=== PATIENT | female | born 1975 | race Caucasian/White ===

== ENCOUNTER 2024-03-21 11:34 | Observation (INO) | payer BC ==
--- NOTE | 2024-03-21 13:59 | ED ---
Headache HPI - General Source: patient, family Mode of arrival: wheelchair Limitations: no limitations - History of Present Illness MD Complaint: headache Onset/Timin Severity scale (1-10): 7 <Erick Barber - Last Filed: 03/21/24 13:54> - General Source: patient, family, RN notes reviewed, old records reviewed, Caregiver Mode of arrival: wheelchair Limitations: no limitations - History of Present Illness -: week(s) Onset Description: gradual Location: right, left, frontal, occipital Severity: severe Severity scale (1-10): 10 Quality: aching, throbbing Consistency: constant Improves With: nothing Worsens With: none Associated Symptoms: photophobia, sensitivity to sound Treatments Prior to Arrival: Acetaminophen, Ibuprofen <Leland Yen - Last Filed: 03/25/24 17:48> - General Chief Complaint: Headache Stated Complaint: Headache Time Seen by Provider: 03/21/24 11:50 - History of Present Illness Initial Comments: Quick note: This is a 49-year-old female presenting with headache (/10) x 7 days. Patient states pain is mostly in the occipital region of her head with associated light/sound sensitivity and nausea. Patient states symptoms started when she saw a white light and getting lightheaded while driving. Patient states she seen at [facility] in [place] where she was admitted with the same symptoms from 03/14/2024 to 03/17/2024. States she had a CT and MRI of her brain where they suspect that she may have pseudotumor cerebri. Patient states she had a "weird EKG" at the time with follow-up with setup technician next month. Patient has known history of bradycardia. Endorses use of Advil/Tylenol, Medrol Dosepak and Topamax, the last 2 received following discharge, with minimal relie f. Denies fever, chills, neck stiffness, chest pain, dyspnea, abdominal pain, vomiting. (Erick Barber) This is a 49-year-old female complex recent medical history including multiple hospital admissions. Patient has intractable headache despite outpatient treatment and presents to the ER for diagnosis and relief of symptoms (Leland Yen) - Related Data Home Medications Medication Instructions Recorded Confirmed Levothyroxine Sodium [Synthroid] 100 mcg PO DAILY 03/21/24 03/21/24 Rimegepant Sulfate [Nurtec Odt] 75 mg PO DAILY PRN 03/21/24 03/21/24 methylPREDNISolone Dose Pack See Taper PO DIRECTED 03/21/24 03/21/24 [Medrol Dose Pack] Previous Rx's Medication Instructions Recorded Acetaminophen Tab [Tylenol] 650 mg PO Q6HR PRN tab 03/25/24 Butalb/APAP/Caff 50-325-40Mg 1 each PO DAILY PRN #30 tab 03/25/24 [Fioricet 50-325-40] SUMAtriptan succinate [Imitrex] 50 mg PO DAILY PRN #20 tab 03/25/24 Topiramate [Topamax] 100 mg PO BID #60 tab 03/25/24 Allergies Allergy/AdvReac Type Severity Reaction Status Date / Time No Known Allergies Allergy Verified 03/21/24 16:43 Review of Systems ROS Other: All systems not noted in ROS Statement are negative. <Erick Barber - Last Filed: 03/21/24 13:54> ROS Other: All systems not noted in ROS Statement are negative. <Leland Yen - Last Filed: 03/25/24 17:48> ROS Statement: Those systems with pertinent positive or pertinent negative responses have been documented in the HPI. Past Medical History Past Medical History: No Reported History History of Any Multi-Drug Resistant Organisms: None Reported Past Surgical History: No Surgical Hx Reported Past Psychological History: No Psychological Hx Reported Smoking Status: Never smoker Past Alcohol Use History: None Reported Past Drug Use History: None Reported <Erick Barber - Last Filed: 03/21/24 13:54> General Exam <Erick Barber - Last Filed: 03/21/24 13:54> General appearance: alert, in no apparent distress Head exam: Present: atraumatic, normocephalic, normal inspection Eye exam: Present: normal appearance, PERRL, EOMI. Absent: scleral icterus, conjunctival injection, periorbital swelling ENT exam: Present: normal exam, mucous membranes moist Neck exam: Present: normal inspection. Absent: tenderness, meningismus, lymphadenopathy Respiratory exam: Present: normal lung sounds bilaterally. Absent: respiratory distress, wheezes, rales, rhonchi, stridor Cardiovascular Exam: Present: regular rate, normal rhythm, normal heart sounds. Absent: systolic murmur, diastolic murmur, rubs, gallop, clicks GI/Abdominal exam: Present: soft, normal bowel sounds. Absent: distended, tenderness, guarding, rebound, rigid Extremities exam: Present: normal inspection, full ROM, normal capillary refill. Absent: tenderness, pedal edema, joint swelling, calf tenderness Back exam: Present: normal inspection Neurological exam: Present: alert, oriented X3, CN II-XII intact Psychiatric exam: Present: normal affect, normal mood Skin exam: Present: warm, dry, intact, normal color. Absent: rash <Leland Yen - Last Filed: 03/25/24 17:48> - General Exam Comments Initial Comments: Visual Physical Exam Vital signs reviewed General: Well-appearing, nontoxic. Patient seated in wheelchair holding head and appears mildly distressed. Head: Normocephalic, atraumatic Eyes: PERRLA, EOMI ENT: Airway patent Chest: Nonlabored breathing Skin: No visual rash, normal skin tone Neuro: Alert and oriented 3 Musculoskeletal: No gross abnormalities (Erick Barber) Course <Leland Yen - Last Filed: 03/25/24 17:48> Vital Signs 03/21/24 03/21/24 03/22/24 12:07 21:51 01:00 Temperature 97.8 F 98.5 F Pulse Rate 49 L 45 L 48 L Respiratory 18 16 17 Rate Blood Pressure 132/84 131/85 131/73 O2 Sat by Pulse 98 100 98 Oximetry 03/22/24 03/22/24 03/22/24 06:00 07:31 12:04 Temperature 98.1 F Pulse Rate 46 L 53 L 50 L Respiratory 16 18 16 Rate Blood Pressure 139/76 119/70 146/81 O2 Sat by Pulse 95 95 97 Oximetry - Reevaluation(s) Reevaluation #1: 03/21/24 16:44 Medical records reviewed (Leland Yen) Reevaluation #2: 03/21/24 16:44 Patient symptoms unimproved, headache difficult to control (Leland Yen) Reevaluation #3: 03/21/24 16:44 Patient informed of results questions answered (Leland Yen) Reevaluation #4: Was pt. sent in by a medical professional or institution (, BASHIR, COMMERCIAL LEASE ADMINISTRATOR, urgent ca re, hospital, or senior living...) When possible be specific @ -no Did you speak to anyone other than the patient for history (EMS, parent, family, police, friend...)? What history was obtained from this source @ -no Did you review nursing and triage notes (agree or disagree)? Why? @ -agree Are old charts reviewed (outside hosp., previous admission, EMS record, old EKG, old radiological studies, urgent care reports/EKG's, senior living records)? Report findings @ -yes Differential Diagnosis (chest pain, altered mental status, abdominal pain women, abdominal pain men, vaginal bleeding, weakness, fever, dyspnea, syncope, headache, dizziness, GI bleed, back pain, seizure, CVA, palpatations, mental health, musculoskeletal)? @ -prior EKG interpreted by me (3pts min.). @ -yes X-rays interpreted by me (1pt min.). @ -Yes negative for acute disease to CT interpreted by me (1pt min.). @ -no U/S interpreted by me (1pt. min.). @ -no What testing was considered but not performed or refused? (CT, X-rays, U/S, labs)? Why? @ -none What meds were considered but not given or refused? Why? @ -none Did you discuss the management of the patient with other professionals (professionals i.e. BASHIR Nelson, COMMERCIAL LEASE ADMINISTRATOR, lab, RT, psych nurse, social work manager, restrike hammer operator, teacher, special service officer, wrapper caser)? Give summary @ -no Was smoking cessation discussed for >3mins.? @ -no Was critical care preformed (if so, how long)? @ -no Were there social determinants of health that impacted care today? How? (Ho melessness, low income, unemployed, alcoholism, drug addiction, transportation, low edu. Level, literacy, decrease access to med. care, senior care, rehab)? @ -none Was there de-escalation of care discussed even if they declined (Discuss DNR or withdrawal of care, Hospice)? DNR status @ -no What co-morbidities impacted this encounter? (DM, HTN, Smoking, COPD, CAD, Cancer, CVA, ARF, Chemo, Hep., AIDS, mental health diagnosis, sleep apnea, morbid obesity)? @ -none Was patient admitted / discharged? Hospital course, mention meds given and route, prescriptions, significant lab abnormalities, going to OR and other pertinent info. @ - 49 female will admit for intractable headache severe headache on the outpatient basis impacting activities of daily living. Patient on multiple different medications without improvement in symptoms, will admit for neurology evaluation concern for pseudotumor cerebri and increased intracranial pressure Admitted Undiagnosed new problem with uncertain prognosis? @ -no Drug Therapy requiring intensive monitoring for toxicity (Heparin, Nitro, Insulin, Cardizem)? @ -no Were any procedures done? @ -no Diagnosis/symptom? @ -Intractable headache Acute, or Chronic, or Acute on Chronic? @ -Acute Uncomplicated (without systemic symptoms) or Complicated (systemic symptoms)? @ -Complicated Side effects of treatment? @ -no Exacerbation, Progression, or Severe Exacerbation? @ -exacerbation Poses a threat to life or bodily function? How? (Chest pain, [place], [place], pneumonia, PE, COPD, DKA, ARF, appy, cholecystitis, CVA, Diverticulitis, Homicidal, Suicidal, threat to staff... and all critical care pts) @ -yes severe headache (Leland Yen) Reevaluation #5: Differential Headache: Migraine, tension, cluster, carbon monoxide, central venous thrombosis, pension karma temporal arteritis, acute closure glaucoma, intercranial hemorrhage, mastoiditis, sinusitis, head injury, this is not meant to be an all-inclusive li st. (Leland Yen) - Consultations Consultation #1: Spoke with [facility] who agrees to admit this patient (Leland Yen) Medical Decision Making <Erick Barber - Last Filed: 03/21/24 13:54> - Lab Data Result diagrams: 03/21/24 15:24 03/21/24 15:24 - EKG Data -: EKG Interpreted by Me (EKG sinus bradycardia 48 [place] 158 QRS 102 QTc 402) - Radiology Data Radiology results: report reviewed (Chest x-ray is negative for acute disease), image reviewed <Leland Yen - Last Filed: 03/25/24 17:48> - Medical Decision Making I completed the quick note portion of this chart signed SHAHBAZ Alexander (Erick Barber) 49 female will admit for intractable headache severe headache on the outpatient basis impacting activities of daily living. Patient on multiple different medications without improvement in symptoms, will admit for neurology evaluation concern for pseudotumor cerebri and increased intracranial pressure (Leland Yen) - Lab Data Lab Results 03/21/24 03/21/24 03/21/24 Range/Units 15:24 15:24 15:24 WBC 11.6 H (3.8-10.6) k/uL RBC 5.43 H (3.80-5.40) m/uL Hgb 15.5 (11.4-16.0) gm/dL Hct 47.8 H (34.0-46.0) % MCV 88.1 (80.0-100.0) fL MCH 28.5 (25.0-35.0) pg MCHC 32.4 (31.0-37.0) g/dL RDW 14.6 (11.5-15.5) % Plt Count 334 (150-450) k/uL MPV 7.2 Neutrophils % 74 % Lymphocytes % 20 % Monocytes % 4 % Eosinophils % 0 % Basophils % 0 % Neutrophils # 8.6 H (1.3-7.7) k/uL Lymphocytes # 2.4 (1.0-4.8) k/uL Monocytes # 0.5 (0-1.0) k/uL Eosinophils # 0.0 (0-0.7) k/uL Basophils # 0.0 (0-0.2) k/uL PT (10.0-12.5) sec INR (<1.2) APTT (22.0-30.0) sec Sodium 140 (137-145) mmol/L Potassium 4.3 (3.5-5.1) mmol/L Chloride 103 (98-107) mmol/L Carbon Dioxide 24 (22-30) mmol/L Anion Gap 13 mmol/L BUN 17 (7-17) mg/dL Creatinine 0.81 (0.52-1.04) mg/dL Est GFR (CKD-EPI)AfAm >90 (>60 ml/min/1.73 sqM) Est GFR (CKD-EPI)NonAf 87 (>60 ml/min/1.73 sqM) Glucose 115 H (74-99) mg/dL Plasma Lactic Acid Sebas (0.7-2.0) mmol/L Calcium 9.7 (8.4-10.2) mg/dL Magnesium 2.3 (1.6-2.3) mg/dL Total Bilirubin 0.8 (0.2-1.3) mg/dL AST 24 (14-36) U/L ALT 20 (4-34) U/L Alkaline Phosphatase 71 (38-126) U/L Troponin I (0.000-0.034) ng/mL C-Reactive Protein <0.5 (<1.0) mg/dL Total Protein 8.9 H (6.3-8.2) g/dL Albumin 5.4 H (3.5-5.0) g/dL Urine Color Urine Appearance (Clear) Urine pH (5.0-8.0) Ur Specific [place] (1.001-1.035) Urine Protein (Negative) Urine Glucose (UA) (Negative) Urine Ketones (Negative) Urine Blood (Negative) Urine Nitrite (Negative) Urine Bilirubin (Negative) Urine Urobilinogen (<2.0) mg/dL Ur Leukocyte Esterase (Negative) Urine HCG, Qual Not Detected (Not Detectd) 03/21/24 03/21/24 03/21/24 Range/Units 15:24 15:24 15:24 WBC (3.8-10.6) k/uL RBC (3.80-5.40) m/uL Hgb (11.4-16.0) gm/dL Hct (34.0-46.0) % MCV (80.0-100.0) fL MCH (25.0-35.0) pg MCHC (31.0-37.0) g/dL RDW (11.5-15.5) % Plt Count (150-450) k/uL MPV Neutrophils % % Lymphocytes % % Monocytes % % Eosinophils % % Basophils % % Neutrophils # (1.3-7.7) k/uL Lymphocytes # (1.0-4.8) k/uL Monocytes # (0-1.0) k/uL Eosinophils # (0-0.7) k/uL Basophils # (0-0.2) k/uL PT 11.7 (10.0-12.5) sec INR 1.1 (<1.2) APTT 26.3 (22.0-30.0) sec Sodium (137-145) mmol/L Potassium (3.5-5.1) mmol/L Chloride (98-107) mmol/L Carbon Dioxide (22-30) mmol/L Anion Gap mmol/L BUN (7-17) mg/dL Creatinine (0.52-1.04) mg/dL Est GFR (CKD-EPI)AfAm (>60 ml/min/1.73 sqM) Est GFR (CKD-EPI)NonAf (>60 ml/min/1.73 sqM) Glucose (74-99) mg/dL Plasma Lactic Acid Sebas 1.0 (0.7-2.0) mmol/L Calcium (8.4-10.2) mg/dL Magnesium (1.6-2.3) mg/dL Total Bilirubin (0.2-1.3) mg/dL AST (14-36) U/L ALT (4-34) U/L Alkaline Phosphatase (38-126) U/L Troponin I <0.012 (0.000-0.034) ng/mL C-Reactive Protein (<1.0) mg/dL Total Protein (6.3-8.2) g/dL Albumin (3.5-5.0) g/dL Urine Color Urine Appearance (Clear) Urine pH (5.0-8.0) Ur Specific [place] (1.001-1.035) Urine Protein (Negative) Urine Glucose (UA) (Negative) Urine Ketones (Negative) Urine Blood (Negative) Urine Nitrite (Negative) Urine Bilirubin (Negative) Urine Urobilinogen (<2.0) mg/dL Ur Leukocyte Esterase (Negative) Urine HCG, Qual (Not Detectd) 03/21/24 Range/Units 15:55 WBC (3.8-10.6) k/uL RBC (3.80-5.40) m/uL Hgb (11.4-16.0) gm/dL Hct (34.0-46.0) % MCV (80.0-100.0) fL MCH (25.0-35.0) pg MCHC (31.0-37.0) g/dL RDW (11.5-15.5) % Plt Count (150-450) k/uL MPV Neutrophils % % Lymphocytes % % Monocytes % % Eosinophils % % Basophils % % Neutrophils # (1.3-7.7) k/uL Lymphocytes # (1.0-4.8) k/uL Monocytes # (0-1.0) k/uL Eosinophils # (0-0.7) k/uL Basophils # (0-0.2) k/uL PT (10.0-12.5) sec INR (<1.2) APTT (22.0-30.0) sec Sodium (137-145) mmol/L Potassium (3.5-5.1) mmol/L Chloride (98-107) mmol/L Carbon Dioxide (22-30) mmol/L Anion Gap mmol/L BUN (7-17) mg/dL Creatinine (0.52-1.04) mg/dL Est GFR (CKD-EPI)AfAm (>60 ml/min/1.73 sqM) Est GFR (CKD-EPI)NonAf (>60 ml/min/1.73 sqM) Glucose (74-99) mg/dL Plasma Lactic Acid Sebas (0.7-2.0) mmol/L Calcium (8.4-10.2) mg/dL Magnesium (1.6-2.3) mg/dL Total Bilirubin (0.2-1.3) mg/dL AST (14-36) U/L ALT (4-34) U/L Alkaline Phosphatase (38-126) U/L Troponin I (0.000-0.034) ng/mL C-Reactive Protein (<1.0) mg/dL Total Protein (6.3-8.2) g/dL Albumin (3.5-5.0) g/dL Urine Color Colorless Urine Appearance Clear (Clear) Urine pH 5.0 (5.0-8.0) Ur Specific [place] 1.017 (1.001-1.035) Urine Protein Negative (Negative) Urine Glucose (UA) Negative (Negative) Urine Ketones Negative (Negative) Urine Blood Negative (Negative) Urine Nitrite Negative (Negative) Urine Bilirubin Negative (Negative) Urine Urobilinogen <2.0 (<2.0) mg/dL Ur Leukocyte Esterase Negative (Negative) Urine HCG, Qual (Not Detectd) Disposition <Erick Barbre - Last Filed: 03/21/24 13:54> Is patient prescribed a controlled substance at d/c from ED?: No Time of Disposition: 16:30 <Leland Yen - Last Filed: 03/25/24 17:48> Clinical Impression: Headache, Intractable headache, Bradycardia Narrative: r/o Pseudotumor Cerebri (Leland Yen) Disposition: ADMITTED IP TO THIS HOSP Condition: Fair
--- NOTE | 2024-03-21 14:48 | XR ---
EXAMINATION TYPE: XR chest 2V DATE OF EXAM: 03/21/2024 2:10 PM COMPARISON: None CLINICAL INDICATION: Female, 49 years old with history of EKG changes; TECHNIQUE: XR chest 2V Frontal and lateral views of the chest. FINDINGS: Lungs/Pleura: There is no evidence of pleural effusion, focal consolidation, or pneumothorax. Pulmonary vascularity: Unremarkable. Heart/mediastinum: Cardiomediastinal silhouette is unremarkable. Musculoskeletal: No acute osseous pathology. IMPRESSION: No acute cardiopulmonary disease/process. [facility], , 03/21/2024 2:46 PM
[2024-03-21 15:46] LABS: Basophils % (A) 0 %; Eosinophils % (A) 0 %; HCT 47.8 % (34.0-46.0); HGB 15.5 gm/dL (11.4-16.0); Lymphocytes # (A) 2.4 k/uL (1.0-4.8); Lymphocytes % (A) 20 %; MCH 28.5 pg (25.0-35.0); MCHC 32.4 g/dL (31.0-37.0); MCV 88.1 fL (80.0-100.0); Mean Platelet Volume 7.2; Monocytes # (A) 0.5 k/uL (0-1.0); Monocytes % (A) 4 %; Neutrophils # (A) 8.6 k/uL (1.3-7.7); Neutrophils % (A) 74 %; Platelet Count 334 k/uL (150-450); RBC 5.43 m/uL (3.80-5.40); RDW 14.6 % (11.5-15.5); WBC 11.6 k/uL (3.8-10.6)
[2024-03-21 15:56] LABS: INR 1.1 (<1.2); Partial Thromboplastin Time 26.3 sec (22.0-30.0); Prothrombin Time 11.7 sec (10.0-12.5)
[2024-03-21] MEDS: KETOROLAC 15 MG/ML 1 ML VIAL IVP STA (15:56)
[2024-03-21] MEDS: diphenhydrAMINE 50 MG/ML 1 ML VIAL IVP STA (15:56)
[2024-03-21] MEDS: METOCLOPRAMIDE 5 MG/ML 2 ML VIAL IVP STA (16:00)
[2024-03-21 16:05] LABS: ALT 20 U/L (4-34); AST 24 U/L (14-36); African American GFR (CKD) >90 (>60 ml/min/1.73 sqM); Albumin 5.4 g/dL (3.5-5.0); Alkaline Phosphatase 71 U/L (38-126); Anion Gap 13 mmol/L; Blood Urea Nitrogen 17 mg/dL (7-17); C Reactive Protein <0.5 mg/dL (<1.0); Calcium 9.7 mg/dL (8.4-10.2); Carbon Dioxide 24 mmol/L (22-30); Chloride 103 mmol/L (98-107); Glucose 115 mg/dL (74-99); Magnesium 2.3 mg/dL (1.6-2.3); Non-African American GFR(CKD) 87 (>60 ml/min/1.73 sqM); Potassium 4.3 mmol/L (3.5-5.1); Sodium 140 mmol/L (137-145); Total Bilirubin 0.8 mg/dL (0.2-1.3); Total Protein 8.9 g/dL (6.3-8.2)
[2024-03-21] MEDS ORDERED: NALOXONE 0.4 MG/ML 1 ML VIAL IV PRN (16:29)
[2024-03-21 16:59] LABS: Appearance,Urine Clear (Clear); Bilirubin,Urine Negative (Negative); Blood,Urine Negative (Negative); Color,Urine Colorless; Glucose,Urine (UA) Negative (Negative); Ketones,Urine Negative (Negative); Leukocyte Esterase,Urine Negative (Negative); Nitrite,Urine Negative (Negative); Protein,Urine Negative (Negative); Specific Gravity,Urine 1.017 (1.001-1.035); Urobilinogen,Urine <2.0 mg/dL (<2.0)
[2024-03-21] MEDS: ACETAMINOPHEN IV (For NPO) 1,000 MG in EMPTY BAG 1 BAG IVPB STA (17:09)
[2024-03-21] MEDS: SODIUM CHLORIDE 0.9% 1,000 ML IV STA (17:15)
[2024-03-21] MEDS: ORPHENADRINE 30 MG/ML 2 ML VIAL IVP STA (17:16)
[2024-03-21] MEDS: HYDROmorphone 1 MG/ML 1 ML SYRINGE IVP STA (17:16)
[2024-03-21] MEDS: SODIUM CHLORIDE 0.9% 500 ML 500 ML IV STA (17:17)
[2024-03-22] MEDS: HYDROmorphone 1 MG/ML 1 ML SYRINGE IVP PRN (01:03)
[2024-03-22] MEDS: ACETAMINOPHEN TAB 325 MG TAB PO PRN (07:35)
[2024-03-22] MEDS: ONDANSETRON 4 MG/2 ML VIAL IVP PRN (12:03)
--- NOTE | 2024-03-22 17:14 | P.HPIM ---
History of Present Illness H&P Date: 03/22/24 History of present illness: 49-year-old female with no significant past medical history who presented to ER with a complaint of headache for 7 days. at bedside. Patient reported that she had headache about 3 months ago, patient also had some swelling at that time, was prescribed Lasix by PCP, which improved headaches at that time. Patient was seen at [facility] in [place] where she was admitted with same symptoms from 03 14-03 17, patient reported that she had a CT and MRI of the brain and they reported that there was some suspicion that she may have sudomotor cerebri, patient also reported that she recently saw industrial truck operator who recommended to see a neurologist for cerebral cerebral evaluation. Patient reported that she use Advil Tylenol, Medrol Dosepak and Topamax with minimal relief. In the ED patient was afebrile, was bradycardic with heart rate 50, respiratory rate 14, blood pressure 125/77, saturating 98% room air. WBC 11.6, hemoglobin 15.5, platelet 334. INR 1.1. CMP was unremarkable. UA was negative. Beta-hCG was negative. EKG showed sinus bradycardia. REVIEW OF SYSTEMS: CONSTITUTIONAL: No fever, no malaise, no fatigue. HEENT: No recent visual problems or hearing problems. Denied any sore throat. CARDIOVASCULAR: No chest pain, orthopnea, PND, no palpitations, no syncope. PULMONARY: No shortness of breath, no cough, no hemoptysis. GASTROINTESTINAL: No diarrhea, no nausea, no vomiting, no abdominal pain. NEUROLOGICAL: Complains of headache. HEMATOLOGICAL: Denies any bleeding or petechiae. GENITOURINARY: Denies any burning micturition, frequency, or urgency. MUSCULOSKELETAL/RHEUMATOLOGICAL: Denies any joint pain, swelling, or any muscle pain. ENDOCRINE: Denies any polyuria or polydipsia. The rest of the 14-point review of systems is negative. PHYSICAL EXAMINATION: GENERAL: The patient is A&O x3, NAD HEENT: EOMI, Sclerae anicteric, Moist Mucous membranes Neck: Supple, Non tender, No JVD PULMONARY: Equal breath souds B/L, No wheezing, No crackles. CARDIOVASCULAR: S1, S2 present. No murmurs, rubs, or gallops. ABDOMEN: Soft, nontender, nondistended, normoactive bowel sounds. No guarding or rebound tenderness. MUSCULOSKELETAL: No edema, No cyanosis. No clubbing. Normal ROM. Intact peripheral pulses. NEUROLOGICAL: CN 2-12 grossly intact. No FND Assessment and plan: Intractable headache: Patient reported first episodes of headache about 3 months ago, now having headache for 7 days, recently admitted at [facility] where she had CT and MRI of the brain Requested reports from [facility] Monitor with neurochecks Pain controlTylenol, Norflex, Benadryl, Dilaudid. Neurology consult Bradycardia: Patient asymptomatic Patient reported to be a runner, reported low heart rate at baseline Monitor Cardiology consulted. DVT prophylaxis SCD Monitor vital signs and labs Labs and medication were reviewed. Continue same treatment. Further recommendations as per clinical course of the patient Dictation was produced using [employer] dictation software. please excuse any grammatical, word or spelling errors. Past Medical History Past Medical History: No Reported History History of Any Multi-Drug Resistant Organisms: None Reported Past Surgical History: No Surgical Hx Reported Past Psychological History: No Psychological Hx Reported Smoking Status: Never smoker Past Alcohol Use History: None Reported Past Drug Use History: None Reported Medications and Allergies Home Medications Medication Instructions Recorded Confirmed Type Levothyroxine Sodium [Synthroid] 100 mcg PO DAILY 03/21/24 03/21/24 History Rimegepant Sulfate [Nurtec Odt] 75 mg PO DAILY PRN 03/21/24 03/21/24 History Topiramate [Topamax] 50 mg PO BID 03/21/24 03/21/24 History methylPREDNISolone Dose Pack See Taper PO DIRECTED 03/21/24 03/21/24 History [Medrol Dose Pack] Allergies Allergy/AdvReac Type Severity Reaction Status Date / Time No Known Allergies Allergy Verified 03/21/24 16:43 Physical Exam Vitals: Vital Signs Temp Pulse Pulse Resp BP BP Pulse Ox 03/22/24 13:12 97.9 F 48 L 14 125/77 98 03/22/24 12:04 50 L 16 146/81 97 03/22/24 07:31 98.1 F 53 L 18 119/70 95 03/22/24 06:00 46 L 16 139/76 95 03/22/24 01:00 48 L 17 131/73 98 03/21/24 21:51 98.5 F 45 L 16 131/85 100 Intake and Output 03/22/24 03/22/24 03/22/24 06:59 14:59 22:59 Other: # Voids 0 Weight 92.079 kg Results CBC & Chem 7: 03/21/24 15:24 03/21/24 15:24 Thrombosis Risk Factor Assmnt - Choose All That Apply Any of the Below Risk Factors Present?: Yes Each Factor Represents 1 point: Age 41-60 years Other Risk Factors: No Other congenital or acquired thrombophilia - If yes, enter type in comment: No Thrombosis Risk Factor Assessment Total Risk Factor Score: 1 Thrombosis Risk Factor Assessment Level: Low Risk
[2024-03-22] MEDS: diphenhydrAMINE 50 MG/ML 1 ML VIAL IVP PRN (17:44)
--- NOTE | 2024-03-22 21:56 | P.CNNES ---
History of Present Illness Consult date: 03/22/24 Requesting physician: Leland Yen Reason for Consult: FISCHER History of Present Illness: Patient is a 49-year-old right-handed female came to the hospital by ambulance yesterday at 11:34 AM for new onset headache. Patient started with new onset headache last Saturday on 03/14/2024. [place] at around 1:15 PM, she developed bad headache involving bioccipital region and behind the temples and between the ears. The acute onset, she had transient episode in which she could not see out of both eyes for 30 seconds. She pulled over. She was taken to [facility] where she underwent CT scan of the head, EKG and was discharged after about couple hours. However after discharge, few hours later, the ED call the patient for her to be admitted to the [facility] because of bradycardia. Patient underwent MRI, CT, EKG, echo and was seen by a neurologist. She was discharged on 03/17/2024. Patient states that she was diagnosed with low-lying brain, probably Chiari malformation. We do not have hardcopy of the record from [facility]. The headache has not gone away, it rates between 4 to 6-10/10. It is still involves the occipital region mostly and sides. She denies any trauma, any current or previous history of stroke or TIA. Patient was seen by vehicle damage appraiser, who did not see any swelling on the optic nerves. However there was possible diagnosis of pseudotumor cerebri, and lumbar puncture was recommended. Patient has been given a course of methylprednisolone, Nurtec ODT and Topamax 50 mg twice daily, but has not helped. Patient denies any history of head trauma, or head injury. She denies any fever, although she is always feeling cold. Her neck does feel stiff, but she believes it from not moving a lot. Besides the headache that started a week ago, she does not get migraines. Patient states that in December 2023, she developed a similar massive headache that lasted for about 4 days. She apparently had gained about 20 pounds in 1 week. Pseudotumor cerebri was suspected. She was given water pill, and the p ain went away in 4 days. Otherwise she has been fine, with no headaches. No family history of migraines. No personal history of migraines. EMS flowsheet not available in the chart. Vital signs on arrival blood pressure 132/84, pulse rate 49, temperature 97.8. Patient has been afebrile. Blood test shows WBC 11.6 hemoglobin 15.5 normal platelets, PT PTT, normal CMP. CRP is normal less than 0.5, troponin negative. UA negative, urine hCG negative. EKG showed sinus bradycardia. Chest x-ray showed no acute cardiopulmonary disease. Home medication includes Nurtec ODT, Topamax 50 mg twice daily, Medrol Dosepak and Synthroid. Patient does not take any control pills. She has history of hysterectomy. Patient has a brother with ruptured cerebral aneurysm at age 20. He survived, n ow age 46. Patient's mother had benign brain tumor. Review of Systems All pertinent positive and negative review of systems mentioned in the HPI. Past Medical History Past Medical History: No Reported History History of Any Multi-Drug Resistant Organisms: None Reported Past Surgical History: No Surgical Hx Reported Past Psychological History: No Psychological Hx Reported Smoking Status: Never smoker Past Alcohol Use History: None Reported Past Drug Use History: None Reported Medications and Allergies Home Medications Medication Instructions Recorded Confirmed Type Levothyroxine Sodium [Synthroid] 100 mcg PO DAILY 03/21/24 03/21/24 History Rimegepant Sulfate [Nurtec Odt] 75 mg PO DAILY PRN 03/21/24 03/21/24 History Topiramate [Topamax] 50 mg PO BID 03/21/24 03/21/24 History methylPREDNISolone Dose Pack See Taper PO DIRECTED 03/21/24 03/21/24 History [Medrol Dose Pack] Allergies Allergy/AdvReac Type Severity Reaction Status Date / Time No Known Allergies Allergy Verified 03/21/24 16:43 Physical Examination - Vital Signs Vital Signs: Vital Signs Temp Pulse Resp BP Pulse Ox 03/22/24 12:04 50 L 16 146/81 97 03/22/24 07:31 98.1 F 53 L 18 119/70 95 03/22/24 06:00 46 L 16 139/76 95 03/22/24 01:00 48 L 17 131/73 98 03/21/24 21:51 98.5 F 45 L 16 131/85 100 Patient is a middle aged female, who appears to be in distress slight ly from headache. She is keeping room dark, appears slightly encephalopathic. Patient is slightly groggy, slightly encephalopathic, but does become alert awake oriented to time place and person. Speech and language functions are normal. Patient can name and repeat very well. No aphasia or dysarthria. Attention, concentration and fund of knowledge is adequate. On cranial nerve examination, pupils are equal, round and reacting to light, visual gonzalez are full on confrontation, with no neglect on double simultaneous stimulation. Extraocular muscles are intact with mild nystagmus noted, more so towards the right gaze.. Face is symmetric, tongue protrudes to the midline. Palatal elevation and sensation normal, hearing and shoulder shrug normal, facial sensation normal. On muscle strength testing, there is no pronator drift and the strength is normal in arms and legs distally and proximally. Deep tendon reflexes are symmetric 1 at the biceps, 1 brachioradialis, 2+ at the knees, 1+ ankles and plantars downgoing bilaterally. Sensory to touch is equal with no neglect on double simultaneous stimulation. Cerebellar function showed very mild possible ataxia for uccngs-pr-[id number] testing, slightly more prominent in the left, but patient is right-hand dominant. No dysdiadochokinesia. No ataxia for wdfi-nu-rple testing on either side. Tone and bulk of muscles normal. Gait deferred.. On general examination, there is no carotid bruit or murmur, S1-S2 audible. Chest is clear on consultation. Abdomen is soft nontender. No organomegaly, bowel sounds present. Peripheral pulses are present. No peripheral edema. Results - Laboratory Findings CBC and BMP: 03/21/24 15:24 03/21/24 15:24 Abnormal Lab Findings: Abnormal Labs 03/21/24 03/21/24 15:24 15:24 WBC 11.6 H RBC 5.43 H Hct 47.8 H Neutrophils # 8.6 H Glucose 115 H Total Protein 8.9 H Albumin 5.4 H Assessment and Plan Assessment: * Acute onset of cephalgia (started 03/14/2024), involving the occipital and temporal regions bilaterally. Exact cause remains uncertain. Rule out cerebral aneurysm/thunderclap headache. Rule out headache related to Chiari malformation or viral meningitis. Pseudotumor cerebri would be unlikely, as the vehicle damage appraiser did not notice any disc edema. Patient states she had a prior bout of headache (although different in quality as compared to the current one) in December 2023 that lasted for 4 days and resolved after receiving diuretic for weight gain. * Family history of cerebral aneurysm. Plan: * Await medical records from [facility]. Want to make sure pat ient has had CTA or MRA of head and neck, and cerebral aneurysms ruled out. * Lumbar puncture was considered to check for viral meningitis and/or pseudotumor cerebri, and to rule out subarachnoid hemorrhage, but patient has Chiari malformation, which may be slightly concerning. Patient may need neur osurgical consultation. * In the meantime, we will perform MRV of the head to rule out venous sinus t hrombosis. * Continue pain control. * Dr. Hawk Moise to start neurology service from the morning. * Thank you for the consult.
--- NOTE | 2024-03-23 09:10 | CONS ---
CONSULTATION CHIEF COMPLAINT: Headache. REASON FOR CARDIOLOGY CONSULTATION: Bradycardia. HISTORY OF PRESENT ILLNESS: This is a 49-year-old lady, who has had episodes of headache, the first time while she was up north in [place], where she was evaluated in the ER and subsequently was seen at [facility] and discharged home from there. The patient states that she had been worked up, having had headache for several months now, and was told she may have pseudotumor cerebri. Most recently, she had been diagnosed with migraine. She apparently has had a slow heart rate all her life, and on most recent EKGs, the patient had sinus bradycardia with heart rates in the 40s, for which Cardiology had been consulted. PAST MEDICAL HISTORY: Significant for headache, hypothyroidism. MEDICATIONS: At home included: 1. Topamax. 2. Synthroid. 3. Medrol Dosepak. ALLERGIES: There are no known drug allergies. FAMILY HISTORY: Negative for premature coronary artery disease. SOCIAL HISTORY: Negative for smoking, ETOH abuse, or drug abuse. REVIEW OF SYSTEMS: review of systems has been performed. Pertinents are as documented. PHYSICAL EXAMINATION: GENERAL: She is comfortable at rest. VITAL SIGNS: Stable. NECK: There is jugular venous distention. Carotid upstroke is normal. There is no bruit. CHEST: Reveals good air entry bilaterally. HEART: Reveals first and second heart sounds. No gallop. ABDOMEN: Soft. EXTREMITIES: Did not reveal any edema. Peripheral pulses are felt. ASSESSMENT AND PLAN: Sinus bradycardia, asymptomatic with a benign physical exam. The patient apparently had an echocardiogram at [facility] and was told it was normal. She was advised Holter monitor. We will obtain in a.m. We will monitor her on telemetry here. Headache management is per primary, and from cardiac standpoint, she does not require any further workup. She can have a Holter done through primary care physician or can have followup in our office and we will be happy to do it. MMODL / IJN: [id number] /
--- NOTE | 2024-03-23 13:11 | P.PN ---
Subjective HISTORY OF PRESENT ILLNESS: Patient examined this morning at the bedside. Patient continues to report a headache this morning. She denies chest pain or pressure. She denies shortness of breath. She remains bradycardic without any significant pauses or heart block. Patient states her heart rate has always ran on the low side for as long as she can remember. Patient reports having a recent echo at [facility] in [place] and states it was normal to her knowledge. PHYSICAL EXAM: VITAL SIGNS: Reviewed. GENERAL: Well-developed in no acute distress. NECK: Supple. No JVD or thyromegaly LUNGS: Respirations even and unlabored. Lungs essentially clear to auscultation bilaterally. HEART: Regular rate and rhythm. S1 and S2 heard. EXTREMITIES: Normal range of motion. No clubbing or cyanosis. Peripheral pulses intact. No lower extremity edema ASSESSMENT: Headache Asymptomatic bradycardia History of hypothyroidism PLAN: Check TSH Patient with known asymptomatic bradycardia No further inpatient recommendations from a cardiac standpoint We will sign off. Please reconsult if needed. Nurse practitioner note has been reviewed by physician. Signing provider agrees with the documented findings, assessment, and plan of care documented by STRATIGRAPHER as a scribe. Objective - Vital Signs Vital signs: Vital Signs Temp 98.7 F 03/23/24 07:00 Pulse 46 L 03/23/24 07:00 Resp 16 03/23/24 07:00 BP 112/79 03/23/24 07:00 Pulse Ox 96 03/23/24 07:00 FiO2 Intake & Output 03/22/24 03/23/24 03/23/24 18:59 06:59 18:59 Weight 92.079 kg Other: Voiding Method Toilet # Voids 0 2 - Labs CBC & Chem 7: 03/21/24 15:24 03/21/24 15:24 Labs: Abnormal Lab Results - Last 24 Hours (Table) 03/23/24 Range/Units 11:22 TSH 5.170 H (0.465-4.680) mIU/L
[2024-03-23 13:22] LABS: T4, Free (Free Thyroxine) 1.04 ng/dL (0.78-2.19)
[2024-03-23] MEDS ORDERED: NON FORMULARY DRUG (Rimegepant Sulfate [Nurtec Odt] 75 MG Tablet) PO PRN (14:42)
--- NOTE | 2024-03-23 14:46 | P.PN ---
Subjective Progress Note Date: 03/23/24 Interval History: 49-year-old female with no significant past medical history who presented to ER with a complaint of headache for 7 days. at bedside. Patient reported that she had headache about 3 months ago, patient also had some swelling at that time, was prescribed Lasix by PCP, which improved headaches at that time. Patient was seen at [facility] where she was admitted with same symptoms from 03 14-03 17, patient reported that she had a CT and MRI of the brain and they reported that there was some suspicion that she may have sudomotor cerebri, patient also reported that she recently saw sheet metal engineer who recommended to see a neurologist for cerebral cerebral evaluation. Patient reported that she use Advil Tylenol, Medrol Dosepak and Topamax with minimal relief. In the ED patient was afebrile, was bradycardic with heart rate 50, respiratory rate 14, blood pressure 125/77, saturating 98% room air. WBC 11.6, hemoglobin 15.5, platelet 334. INR 1.1. CMP was unremarkable. UA was negative. Beta-hCG was negative. EKG showed sinus bradycardia. 03/23--patient was seen and examined today. Continue complain of headache, at bedside. Afebrile, heart rate 46-59, respiratory rate 16, blood pressure 112/79, saturating 96% on room air. TSH mildly elevated 5.10, free T4 normal 1.04. Assessment and plan: Intractable headache: Arteaga 1 malformation: Patient reported first episodes of headache about 3 months ago, now having headache for 7 days, recently admitted at [facility] where she had CT and MRI of the brain Requested reports from [facility]--MRI showed Chiari I malformation, MRV was negative for any thrombus, CT head was negative for acute process. Ophthalmology evaluation at [facility] showed no papilledema. Monitor with neurochecks Pain controlTylenol, Norflex, Benadryl, Dilaudid. Topiramate 100 mg twice daily Neurology consulted Bradycardia: Patient asymptomatic Patient reported to be a runner, reported low heart rate at baseline Monitor Cardiology consulted. Hypothyroidism: Resume Synthroid TSH 5.1, free T41.04. DVT prophylaxis SCD Monitor vital signs and labs Labs and medication were reviewed. Continue same treatment. Further recommendations as per clinical course of the patient PHYSICAL EXAMINATION: GENERAL: The patient is A&O x3, NAD HEENT: EOMI, Sclerae anicteric, Moist Mucous membranes Neck: Supple, Non tender, No JVD PULMONARY: Equal breath souds B/L, No wheezing, No crackles. CARDIOVASCULAR: S1, S2 present. No murmurs, rubs, or gallops. ABDOMEN: Soft, nontender, nondistended, normoactive bowel sounds. No guarding or rebound tenderness. MUSCULOSKELETAL: No edema, No cyanosis. No clubbing. Normal ROM. Intact peripheral pulses. NEUROLOGICAL: CN 2-12 grossly intact. No FND Skin: No Rash REVIEW OF SYSTEMS: CONSTITUTIONAL: No fever or chills. CARDIOVASCULAR: No chest pain, palpitations or syncope. PULMONARY: No shortness of breath, no cough, sore throat. GASTROINTESTINAL: No nausea, vomiting, diarrhea, abdominal pain. : No Dysuria, urgency, frequency. Extremities: No edema. NEUROLOGICAL: Complains of headache, no weakness, or numbness Dictation was produced using [employer] dictation software. please excuse any grammatical, word or spelling errors. Objective - Vital Signs Vital signs: Vital Signs Temp 98.7 F 03/23/24 07:00 Pulse 46 L 03/23/24 07:00 Resp 16 03/23/24 07:00 BP 112/79 03/23/24 07:00 Pulse Ox 96 03/23/24 07:00 FiO2 Intake & Output 03/22/24 03/23/24 03/23/24 18:59 06:59 18:59 Weight 92.079 kg Other: Voiding Method Toilet # Voids 0 2 1 - Labs CBC & Chem 7: 03/21/24 15:24 03/21/24 15:24 Labs: Abnormal Lab Results - Last 24 Hours (Table) 03/23/24 Range/Units 11:22 TSH 5.170 H (0.465-4.680) mIU/L
[2024-03-23] MEDS: TOPIRAMATE 100 MG TAB PO SCH (14:57)
[2024-03-23] MEDS: LEVOTHYROXINE 100 MCG TAB PO SCH (14:57)
--- NOTE | 2024-03-23 15:16 | CT ---
EXAMINATION TYPE: CT angio head neck DATE OF EXAM: 03/23/2024 COMPARISON: None CLINICAL INDICATION: Female, 49 years old with history of headache r/o aneurysm; PHH, Headache, rule out aneurysm. TECHNIQUE: CTA scan of the head and neck is performed with IV Contrast, patient injected with 65 mL of Isovue 300, axial images are obtained, coronal and sagittal reformatted images are reviewed. 3D re constructed images are created on an independent workstation and reviewed. 3-D post processing was pe rformed CT DLP: 381.[address] CTDI: mGy Automated exposure control for dose reduction was used. NASCET criteria was used in interpretation of this exam? FINDINGS: The brachiocephalic origins are widely patent and no significant stenosis. There is no significant stenosis of the common or internal carotid arteries within the neck. There is no stenosis of the vertebral arteries. Intracranially, there is no stenosis, segmental occlusion, sizable aneurysm sac or vascular malformat ion. IMPRESSION:. No significant abnormality seen. NASCET criteria was used in interpretation of this exam? [facility], Workstation: [email or web address] 03/23/2024 3:13 PM
--- NOTE | 2024-03-23 15:59 | P.PN ---
Subjective Progress Note Date: 03/23/24 I am seeing the patient for the first time during this admission. Please refer to Dr. Patterson's note for further details. Seems the patient has been having continuous headaches past 9 days. Patient is accompanied with her is at bedside. It seems the patient has been having bitemporal headache as well as bilateral occipital or just below and she rates the headache 7/10 continuous, throbbing. She does have phonophobia and some photophobia. Has some nausea with some reading. Denies any vomiting. She does have visual disturbance associate with this. She stated headache is worse with supine but is alleviated better with at a 15 or 30 degree angle. Also worse at the end of the night. She stated the headache is alleviated with Dilaudid and currently the headache is 2 out of 10 as well as she had improvement with Nurtec. Patient was hospitalized in [facility] and had MRI MRV brain which were unremarkable. Was notified by the neurologist as well as learning technologies specialist that this seems more migraine. The neuro-learning technologies specialist did not notice any edema according to the patient and her of the optic. She followed up with learning technologies specialist as an outpatient and was told there is also no edema but could not rule out pseudotumor cerebri. She was placed on Topamax 25 mg 2 tablet twice daily for few days but did not notice any improvement and did not have any side effects with the medication. Seems that she had similar headache in December and she was on steroids as well as diuretic briefly. Objective - Vital Signs Vital signs: Vital Signs Temp 97.9 F 03/23/24 14:51 Pulse 48 L 03/23/24 14:51 Resp 16 03/23/24 14:51 BP 114/74 03/23/24 14:51 Pulse Ox 98 03/23/24 14:51 FiO2 Intake & Output 03/22/24 03/23/24 03/23/24 18:59 06:59 18:59 Intake Total 221 Balance 221 Weight 92.079 kg Intake: Oral 221 Other: Voiding Method Toilet # Voids 0 2 1 - Exam GENERAL: The patient is lying in bed and is in mild acute distress. NEUROLOGICAL: Higher mental function: The patient is awake, alert, oriented to self, place and time. Patient is following commands. No aphasia and no neglect. Cranial nerves: The pupils are round, equal and reactive to light and accommodation. Visual gonzalez are full to confrontation throughout. Extraocular movement is intact no nystagmus is noted. Facial sensation is normal to touch throughout. The facial strength is normal throughout. Hearing is normal bilaterally to hand rub. Tongue is midline and moved [id number] without any difficulty. No dysarthria is noted. Shoulder shrug is normal bilaterally. Motor: The strength is 5 over 5 throughout. Normal tone and bulk. Cerebellum: Normal finger to nosebilaterally. Sensation: Sensation is normal to touch throughout. . - Labs CBC & Chem 7: 03/21/24 15:24 03/21/24 15:24 Labs: Abnormal Lab Results - Last 24 Hours (Table) 03/23/24 Range/Units 11:22 TSH 5.170 H (0.465-4.680) mIU/L Assessment and Plan Assessment: * Acute onset of cephalgia (started 03/14/2024), involving the occipital and temporal regions bilaterally. Exact cause remains uncertain. Was evaluated at [facility] and she had MRI of the brain and MRV which was unremarkable for any acute process but has Chiari Malformation type I patient was evaluated by neurologist learning technologies specialist and she was notified this seems more migraine. No optic edema by the learning technologies specialist as an inpatient and [facility] or as an outpatient. Patient states she had a prior bout of headache (although different in quality as compared to the current one) in December 2023 that lasted for 4 days and resolved after receiving diuretic for weight gain. * Chiari Malformation type I * Family history of cerebral aneurysm (brother) * Family history of brain mass (mother). Plan: Ordered CT angiography of the head and neck Dr. Patterson has ordered MRV of the head Patient stated that she tried Topamax 25 mg 2 tablets twice daily for few days but did not see any improvements and did not have any side effects to the medication. I will go up on Topamax 200 mg twice daily which can help with migraine as well as pseudotumor cerebri. I gave the patient one time Magnesium 1gm IV once. Patient is continued on Nurtec 75 mg daily. I ordered ESR. The CRP is normal. Per Dr. Patterson Lumbar puncture was considered to check for viral meningitis and/or pseudotumor cerebri, and to rule out subarachnoid hemorrhage, but patient has Chiari malformation, which may be slightly concerning. Patient may need neurosurgical consultation. I reviewed the MRI of the brain that was she had recently at [facility] and is reported as no acute parenchymal hemorrhage or infarct in the brain. Chiari I malformation no hydrocephalus. In the body report it is reported as cerebellar tonsils lie about 8 mm below the benjamin magnum consistent with Chiari I malformation. As well as the MRV is reported as no evidence of dural venous s inus thrombosis. The plan is discussed with patient and her who is at bedside. Time with Patient: Less than 30
[2024-03-23] MEDS: MAGNESIUM SULFATE-D5W PMX 1 GM in DEXTROSE/WATER 1 100ML.BAG IVPB ONE (16:25)
--- NOTE | 2024-03-24 12:02 | MR ---
INDICATION: Patient age:Female; 49 years old; Reason for study: Cephalgia, ?venous sinus thrombus; PHH. Comparison: CTA head neck 03/23/2024 TECHNIQUE: MRV of the brain was performed utilizing two-dimensional [id number] technique. FINDINGS: There is no evidence of venous occlusion or collateral circulation. There is no evidence of sinus th rombosis. IMPRESSION: No evidence of venous sinus thrombosis. [facility], , 03/24/2024 12:00 PM
[2024-03-24] MEDS: MAGNESIUM SULFATE-D5W PMX 1 GM in DEXTROSE/WATER 1 100ML.BAG IVPB ONE (12:17)
--- NOTE | 2024-03-24 14:32 | P.PN ---
Subjective Interval History: 49-year-old female with no significant past medical history who presented to ER with a complaint of headache for 7 days. at bedside. Patient reported that she had headache about 3 months ago, patient also had some swelling at that time, was prescribed Lasix by PCP, which improved headaches at that time. Patient was seen at [facility] where she was admitted with same symptoms from 03 14-03 17, patient reported that she had a CT and MRI of the brain and they reported that there was some suspicion that she may have sudomotor cerebri, patient also reported that she recently saw instrument repair technician who recommended to see a neurologist for cerebral cerebral evaluation. Patient reported that she use Advil Tylenol, Medrol Dosepak and Topamax with minimal relief. In the ED patient was afebrile, was bradycardic with heart rate 50, respiratory rate 14, blood pressure 125/77, saturating 98% room air. WBC 11.6, hemoglobin 15.5, platelet 334. INR 1.1. CMP was unremarkable. UA was negative. Beta-hCG was negative. EKG showed sinus bradycardia. 03/23--patient was seen and examined today. Continue complain of headache, at bedside. Afebrile, heart rate 46-59, respiratory rate 16, blood pressure 112/79, saturating 96% on room air. TSH mildly elevated 5.10, free T4 normal 1.04. 03/24--patient was seen and examined today, continues complain of headache, afebrile, heart rate in the 40s, blood pressure 113/77, saturating 97% on room air. MRV was negative for any sinus thrombosis. CT angio head and neck yesterday was negative for acute process. MRV was negative for venous sinus thrombosis. Miroslava jaimes received magnesium yesterday, reported improvement of headache, repeat magnesium sulfate ordered per neurology. Assessment and plan: Intractable headache: Arteaga 1 malformation: Patient reported first episodes of headache about 3 months ago, now having headache for 7 days, recently admitted at [facility] where she had CT and MRI of the brain Requested reports from [facility]--MRI showed Chiari I malformation, MRV was negative for any thrombus, CT head was negative for acute process. Ophthalmology evaluation at [facility] showed no papilledema. Monitor with neurochecks Pain controlTylenol, Norflex, Benadryl, Dilaudid. Topiramate [address] angio head and neck negative for acute process MRV negative for sinus thrombosis. Neurology consulted--increased topiramate dose to 100 mg twice daily, IV magnesium sulfate. Bradycardia: Patient asymptomatic Patient reported to be a runner, reported low heart rate at baseline Monitor Cardiology consulted. Hypothyroidism: Resume Synthroid TSH 5.1, free T41.04. DVT prophylaxis SCD Monitor vital signs and labs Labs and medication were reviewed. Continue same treatment. Further recommendations as per clinical course of the patient PHYSICAL EXAMINATION: GENERAL: The patient is A&O x3, NAD HEENT: EOMI, Sclerae anicteric, Moist Mucous membranes Neck: Supple, Non tender, No JVD PULMONARY: Equal breath souds B/L, No wheezing, No crackles. CARDIOVASCULAR: S1, S2 present. No murmurs, rubs, or gallops. ABDOMEN: Soft, nontender, nondistended, normoactive bowel sounds. No guarding or rebound tenderness. MUSCULOSKELETAL: No edema, No cyanosis. No clubbing. Normal ROM. Intact peripheral pulses. NEUROLOGICAL: CN 2-12 grossly intact. No FND Skin: No Rash REVIEW OF SYSTEMS: CONSTITUTIONAL: No fever or chills. CARDIOVASCULAR: No chest pain, palpitations or syncope. PULMONARY: No shortness of breath, no cough, sore throat. GASTROINTESTINAL: No nausea, vomiting, diarrhea, abdominal pain. : No Dysuria, urgency, frequency. Extremities: No edema. NEUROLOGICAL: Complains of headache, no weakness, or numbness Dictation was produced using [employer] dictation software. please excuse any grammatical, word or spelling errors. Objective - Vital Signs Vital signs: Vital Signs Temp 98.1 F 03/24/24 13:53 Pulse 41 L 03/24/24 13:53 Resp 17 03/24/24 13:53 BP 113/77 03/24/24 13:53 Pulse Ox 97 03/24/24 13:53 FiO2 Intake & Output 03/23/24 03/24/24 03/24/24 18:59 06:59 18:59 Intake Total 221 Balance 221 Intake: Oral 221 Other: # Voids 1 1 3 - Labs CBC & Chem 7: 03/21/24 15:24 03/21/24 15:24
--- NOTE | 2024-03-24 17:48 | P.PN ---
Subjective Progress Note Date: 03/24/24 I am following up with the patient and she is accompanied with her . States the IV magnesium she felt extreme relief with the medication but today she has the headache again and is over the bilateral temporal occipital region. Currently headache is 4/10 She has MRV Brain pending today Objective - Vital Signs Vital signs: Vital Signs Temp 98.1 F 03/24/24 13:53 Pulse 41 L 03/24/24 13:53 Resp 17 03/24/24 13:53 BP 113/77 03/24/24 13:53 Pulse Ox 97 03/24/24 13:53 FiO2 Intake & Output 03/23/24 03/24/24 03/24/24 18:59 06:59 18:59 Intake Total 221 Balance 221 Intake: Oral 221 Other: # Voids 1 1 3 - Exam GENERAL: The patient is lying in bed and is in mild acute distress. NEUROLOGICAL: Higher mental function: The patient is awake, alert, oriented to self, place and time. Patient is following commands. No aphasia and no neglect. Cranial nerves: The pupils are round, equal and reactive to light and accommodation. Visual gonzalez are full to confrontation throughout. Extraocular movement is intact no nystagmus is noted. Facial sensation is normal to touch throughout. The facial strength is normal throughout. Hearing is normal bilaterally to hand rub. Tongue is midline and moved [id number] without any difficulty. No dysarthria is noted. Shoulder shrug is normal bilaterally. Motor: The strength is 5 over 5 throughout. Normal tone and bulk. . - Labs CBC & Chem 7: 03/21/24 15:24 03/21/24 15:24 Assessment and Plan Assessment: * Acute onset of cephalgia (started 03/14/2024), involving the occipital and temporal regions bilaterally. Exact cause remains uncertain. Was evaluated at [facility] and she had MRI of the brain and MRV which was unremarkable for any acute process but has Chiari Malformation type I patient was evaluated by neurologist and school based therapist and she was notified this seems more migraine. No optic edema by the school based therapist as an inpatient and [facility] or as an outpatient. Patient states she had a prior bout of headache (although different in quality as compared to the current one) in December 2023 that lasted for 4 days and resolved after receiving diuretic for weight gain. * Chiari Malformation type I * Family history of cerebral aneurysm (brother) * Family history of brain mass (mother). Plan: CT angiography of the head and neck: No significant abnormality noted. Dr. Patterson has ordered MRV of the head Patient stated that she tried Topamax 25 mg 2 tablets twice daily for few days but did not see any improvements and did not have any side effects to the medication. I went up on Topamax 200 mg twice daily which can help with migraine as well as pseudotumor cerebri. Only received small amount of Nurtec prior to this admission and she consumed all and she stated that it is too expensive and she cannot afford it. I will start the patient on Imitrex 50mg once. I gave the patient another dose of Magnesium 1gm IV once. ESR is normal. The CRP is normal. Per Dr. Patterson Lumbar puncture considered to check for viral meningitis and/or pseudotumor cerebri, and to rule out subarachnoid hemorrhage, but patient has Chiari malformation, which may be slightly concerning. Patient may need neurosurgical consultation. I spoke with the patient today and she is in agreement of avoiding lumbar puncture because of the risk. Will have the patient follow-up with neurosurgeon as an outpatient for further evaluation of the Chiari malformation. I reviewed the MRI of the brain that was she had recently at [facility] and is reported as no acute parenchymal hemorrhage or infarct in the brain. Chiari I malformation no hydrocephalus. In the body report it is reported as cerebellar tonsils lie about 8 mm below the benjamin magnum consistent with Chiari I m alformation. As well as the MRV is reported as no evidence of dural venous sinus thrombosis. The plan is discussed with patient and her who is at bedside and primary attending. Time with Patient: Less than 30
[2024-03-24] MEDS: SUMAtriptan succinate 50 MG TAB PO STA (18:29)
[2024-03-24 19:41] VITALS: RESP 16
[2024-03-25 01:52] VITALS: PULSE 45
[2024-03-25] MEDS: SUMAtriptan succinate 50 MG TAB PO PRN (02:57)
[2024-03-25 10:07] VITALS: BP 111/76; TEMP 98.3
[2024-03-25] MEDS: BUTALB/APAP/CAFF 50-325-40MG TAB PO PRN (12:02)
--- NOTE | 2024-03-25 14:12 | P.DS ---
Providers Date of admission: 03/21/24 16:30 Expected date of discharge: 03/25/24 Attending physician: Keila Corona Consults: 03/21/24 16:29 Consult Physician Routine Consulting Provider: Carlyle Patterson Consult Reason/Comments: FISCHER Do you want consulting provider notified?: Yes Primary care physician: [facility] Course: Discharge diagnoses: Intractable headache: Arteaga 1 malformation: Patient reported first episodes of headache about 3 months ago, now having headache for 7 days, recently admitted at [facility] where she had CT and MRI of the brain Requested reports from [facility]--MRI showed Chiari I malformation, MRV was negative for any thrombus, CT head was negative for acute process. Ophthalmology evaluation at [facility] showed no papilledema. Monitor with neurochecks Pain controlTylenol, Norflex, Benadryl, Dilaudid. Topiramate [address] angio head and neck negative for acute process MRV negative for sinus thrombosis. Neurology consulted--increased topiramate dose to 100 mg twice daily, achieved IV magnesium sulfate. Started on Imitrex as needed, patient reported Nurtec cost prohibitive, Neurology recommended outpatient follow-up with neurology and neurosurgery. Bradycardia: Patient asymptomatic Patient reported to be a runner, reported low heart rate at baseline Monitor Cardiology consulted--no further workup. Hypothyroidism: Resume Synthroid TSH 5.1, free T4--1.04. Hospital course: 49-year-old female with no significant past medical history who presented to ER with a complaint of headache for 7 days. at bedside. Patient reported that she had headache about 3 months ago, patient also had some swelling at that time, was prescribed Lasix by PCP, which improved headaches at that time. Patient was seen at [facility] where she was admitted with same symptoms from 03 14-03 17, patient reported that she had a CT and MRI of the brain and they reported that there was some suspicion that she may have sudomotor cerebri, patient also reported that she recently saw wire technician who recommended to see a neurologist for cerebral cerebral evaluation. Patient reported that she use Advil Tylenol, Medrol Dosepak and Topamax with minimal relief. In the ED patient was afebrile, was bradycardic with heart rate 50, respiratory rate 14, blood pressure 125/77, saturating 98% room air. WBC 11.6, hemoglobin 15.5, platelet 334. INR 1.1. CMP was unremarkable. UA was negative. Beta-hCG was negative. EKG showed sinus bradycardia. 03/23--patient was seen and examined today. Continue complain of headache, at bedside. Afebrile, heart rate 46-59, respiratory rate 16, blood pressure 112/79, saturating 96% on room air. TSH mildly elevated 5.10, free T4 normal 1.04. 03/24--patient was seen and examined today, continues complain of headache, afebrile, heart rate in the 40s, blood pressure 113/77, saturating 97% on room air. MRV was negative for any sinus thrombosis. CT angio head and neck yesterday was negative for acute process. MRV was negative for venous sinus thrombosis. Patient received magnesium yesterday, reported improvement of headache, repeat magnesium sulfate ordered per neurology. 03/25/24--patient was seen and examined today. Headache was improving. Discussed with neurology, recommended outpatient follow-up with neurosurgery for further evaluation of Chiari I malformation. Patient condition vital stable at discharge. Patient continued on as needed Imitrex and few scattered discharge. Follow-up with PCP in 1 week Follow-up with neurology and neurosurgery as outpatient. PHYSICAL EXAMINATION: GENERAL: The patient is A&O x3, NAD HEENT: EOMI, Sclerae anicteric, Moist Mucous membranes Neck: Supple, Non tender, No JVD PULMONARY: Equal breath souds B/L, No wheezing, No crackles. CARDIOVASCULAR: S1, S2 present. No murmurs, rubs, or gallops. ABDOMEN: Soft, nontender, nondistended, normoactive bowel sounds. No guarding or rebound tenderness. MUSCULOSKELETAL: No edema, No cyanosis. No clubbing. Normal ROM. Intact peripheral pulses. NEUROLOGICAL: CN 2-12 grossly intact. No FND SKIN: No rashes. Dictation was produced using [employer] dictation software. please excuse any grammatical, word or spelling errors. Patient Condition at Discharge: Fair Plan - Discharge Summary Discharge Rx Participant: No New Discharge Prescriptions: New SUMAtriptan succinate [Imitrex] 50 mg PO DAILY PRN #20 tab PRN Reason: Headache Topiramate [Topamax] 100 mg PO BID #60 tab Acetaminophen Tab [Tylenol] 650 mg PO Q6HR PRN tab PRN Reason: Mild Pain Or Fever > 100.5 Butalb/APAP/Caff 50-325-40Mg [Fioricet 50-325-40] 1 each PO DAILY PRN #30 tab PRN Reason: Headache Continue Levothyroxine Sodium [Synthroid] 100 mcg PO DAILY methylPREDNISolone Dose Pack [Medrol Dose Pack] See Taper PO DIRECTED Rimegepant Sulfate [Nurtec Odt] 75 mg PO DAILY PRN PRN Reason: Migraine Headache Discontinued Topiramate [Topamax] 50 mg PO BID Discharge Medication List Levothyroxine Sodium [Synthroid] 100 mcg PO DAILY 03/21/24 [History] Rimegepant Sulfate [Nurtec Odt] 75 mg PO DAILY PRN 03/21/24 [History] methylPREDNISolone Dose Pack [Medrol Dose Pack] See Taper PO DIRECTED 03/21/24 [History] Acetaminophen Tab [Tylenol] 650 mg PO Q6HR PRN tab 03/25/24 [Rx] Butalb/APAP/Caff 50-325-40Mg [Fioricet 50-325-40] 1 each PO DAILY PRN #30 tab 03/25/24 [Rx] SUMAtriptan succinate [Imitrex] 50 mg PO DAILY PRN #20 tab 03/25/24 [Rx] Topiramate [Topamax] 100 mg PO BID #60 tab 03/25/24 [Rx] Follow up Appointment(s)/Referral(s): Petey Rosado MD [Primary Care Provider] - 1-2 days Shahab Matthews DO [STAFF PHYSICIAN] - 1 Week Adan Graf MD [REFERRING] - 1 Week Discharge Disposition: HOME SELF-CARE
--- NOTE | 2024-03-25 15:12 | P.PN ---
Subjective Progress Note Date: 03/25/24 I am following-up with patient and she feels she has improvement since being on Imitrex. Now she stated she can handle the light and is able to walk without assistance. She feel headache is more tolerable. Objective - Vital Signs Vital signs: Vital Signs Temp 98.3 F 03/25/24 07:00 Pulse 45 L 03/25/24 14:00 Resp 16 03/25/24 14:00 BP 111/76 03/25/24 07:00 Pulse Ox 97 03/25/24 07:00 FiO2 Intake & Output 03/24/24 03/25/24 03/25/24 18:59 06:59 18:59 Intake Total 236 Balance 236 Intake: Oral 236 Other: Voiding Method Toilet # Voids 3 3 3 - Exam GENERAL: The patient is lying in bed and is not in acute distress. NEUROLOGICAL: Higher mental function: The patient is awake, alert, oriented to self, place and time. Patient is following commands. No aphasia and no neglect. Cranial nerves: The pupils are round, equal and reactive to light and accommodation. Visual gonzalez are full to confrontation throughout. Extraocular movement is intact no nystagmus is noted. Facial sensation is normal to touch throughout. The facial strength is normal throughout. Hearing is normal bilaterally to hand rub. Tongue is midline and moved [id number] without any difficulty. No dysarthria is noted. Shoulder shrug is normal bilaterally. Motor: The strength is 5 over 5 throughout. Normal tone and bulk. . - Labs CBC & Chem 7: 03/21/24 15:24 03/21/24 15:24 Assessment and Plan Assessment: * Acute onset of cephalgia (started 03/14/2024), involving the occipital and temporal regions bilaterally. Exact cause remains uncertain but appears Migraine. Was evaluated at [facility] and she had MRI of the brain and MRV which was unremarkable for any acute process but has Chiari Malformation type I patient was evaluated by neurologist and relay shop tester and she was notified this seems more migraine. No optic edema by the relay shop tester as an inpatient and [facility] or as an outpatient. Patient states she had a prior bout of headache (although different in quality as compared to the current one) in December 2023 that lasted for 4 days and resolved after receiving diuretic for weight gain--Today headache is more controlled * Chiari Malformation type I * Family history of cerebral aneurysm (brother) * Family history of brain mass (mother). Plan: CT angiography of the head and neck: No significant abnormality noted. Dr. Patterson has ordered MRV of the head and ins unremarkable. Patient stated that she tried Topamax 25 mg 2 tablets twice daily for few days but did not see any improvements and did not have any side effects to the medication. I went up on Topamax 200 mg twice daily which can help with migrain e as well as pseudotumor cerebri. Can consider going up to 150mg bid next week if continues to have headache. Only received small amount of Nurtec prior to this admission and she consumed all and she stated that it is too expensive and she cannot afford it. Placed on Imitrex 50mg PRN and max dose is 9 per month. She does not have contraindication with Imitrex and bradycardia is not contraindication and confirmed with Pharmacy team as well. I will start her on Fioricet PRN. ESR is normal. The CRP is normal. Per Dr. Patterson Lumbar puncture considered to check for viral meningitis and/or pseudotumor cerebri, and to rule out subarachnoid hemorrhage, but patient has Chiari malformation, which may be slightly concerning. Patient may need neurosurgical consultation. I spoke with the patient today and she is in agreement of avoiding lumbar puncture because of the risk. Will have the patie nt follow-up with neurosurgeon as an outpatient for further evaluation of the Chiari malformation. I reviewed the MRI of the brain that was she had recently at [facility] and is reported as no acute parenchymal hemorrhage or infarct in the brain. Chiari I malformation no hydrocephalus. In the body report it is reported as cerebellar tonsils lie about 8 mm below the benjamin magnum consistent with Chiari I malformation. As well as the MRV is reported as no evidence of dural venous sinus thrombosis. If patient continues to be doing well then is clear from neurological perspective. The plan is discussed with patient and her who is at bedside and primary attending. Time with Patient: Less than 30
== END 2024-03-25 14:45 | disposition home or self-care (01) ==
LOC: EC 11:34 → 6NMEDSUR 16:30
PROVIDERS: ADMIT Hospitalist; ATTEND Hospitalist
DX: G93.5 Compression of brain (principal); R00.1 Bradycardia, unspecified; E03.9 Hypothyroidism, unspecified; Z79.890 Hormone replacement therapy; Z79.899 Other long term (current) drug therapy; Z82.3 Family history of stroke
CPT/HCPCS: 96376 ×3; 96366; 96367; 96375 ×3; 96365; 99285; 36415; 93005 ×2; 84439; 80053; 85652; 84443; 83605; 83735; 84484; 85025; 85610; 85730; 86140; 81003; 81025; 71046; 70496; 70498; 70544; G0378 ×5; J1200 ×2; J2360; J2765; J2405 ×2; J1171 ×3; J3475 ×2; J0131; J1885; Q9967